=== PATIENT | male | born 1980 | race Caucasian/White ===

== ENCOUNTER 2020-11-26 19:55 | Emergency (ER) | payer MEDICAID, SELFPAY ==
[2020-11-26 20:06] VITALS: BP 168/142; PULSE 71; RESP 18; TEMP 37.5; O2SAT 94
--- NOTE | 2020-11-26 20:26 | ED.GENADUL_ITS ---
Discharge Plan Disposition Patient Disposition: HOME Condition: Stable Discharge Details Clinical Impression: Cephalgia, HTN (hypertension) Primary Care Provider: None,None ED Provider: Manolo Grady Home Meds and New Rx's Prescriptions: Continued buprenorphine-naloxone [Suboxone] 12-3 mg Film 1 film BUCCAL Q24H RF: 0 Discharge Instructions Instructions: General Headache (ED), Hypertension (ED) Additional Instructions: At this time your laboratory values do not reveal any obvious emergent process. You have responded nicely to the IV medications given she was here in the ER. As we discussed your blood pressure is elevated here in the ER but is nonemergent. I would like you to check your blood pressure twice a day for the next week and keep a log of your pressures. Please watch for new or worsening symptoms and return to the ER for any concerns. Lastly, I have placed you on the care management list, our care management team should be contacting you to help expedite outpatient primary care follow-up Medical Decision Making <MILES Cardenas - Last Filed: 11/26/20 23:41> 40-year-old gentleman, current daily Suboxone use, presents for a global headache that began this morning and was mild, progressed throughout the day, currently 7 out of 10 associate with photophobia, nausea, vomiting. Reports history of similar headaches. Denies recent illness or trauma. He appears diaphoretic and is actively dry heaving. He appears nontoxic, neurologically intact, no nuchal rigidity. Initial temp was 37.5, after he was medicated and no longer diaphoretic his temperature was 36.6. Initially had difficulty obtaining IV access, Dr. Ramon eventually obtained IV access. Patient given IV fluids and Zofran, reports no improvement with Zofran Given IV Reglan and Benadryl. Overall reports improvement of his symptoms but they have not resolved completely. Laboratory values have resulted, white blood cell count of 6.55 hemoglobin 13.3 hematocrit 39.6 platelet count 172. Potassium 3.9, creatinine 1.1 with a GFR greater than 60. LFTs slightly elevated. Abdomen soft, no ntender. Blood pressure is trending downward, no evidence of hypertensive emergency. We will place the patient on the care management list to help expedite outpatient primary care follow-up. Upon reevaluation patient reports his headache is now a 1 out of 10, barely there and stating. Reports that his nausea and vomiting has resolved completely. No longer has any photosensitivity. Blood pressure continues to trend downward. No evidence of hypertensive emergency. Denies any chest pain or shortness of breath. Renal function, creatinine 1.1, GFR greater than 60. Patient reports that he feels well enough to be discharged home. We did discuss his elevated blood pressure here in the ER and he will follow this through his primary care once he is contacted by the care management team. Upon discharge patient appears well, nontoxic, neurologically intact, no nuchal rigidity whatsoever Medical Records Medical records narrative: No previous records to review Lab Data Lab results reviewed: Yes I reviewed the patient's lab results. Labs: Laboratory Tests Range/Units 11/26/20 11/26/20 11/26/20 20:45 20:45 21:30 WBC (4.4-10.8) 10^3/uL RBC (4.36-5.78) 10^6/uL Hgb (13.5-17.5) g/dL Hct (40.0-50.0) % MCV (80-95) fL MCH (27.0-33.0) pg MCHC (32.0-36.0) % RDW (11.8-14.1) % Plt Count (130-400) 10^3/uL MPV (8.0-11.0) fL Immature Gran % Neutrophils % Lymphocytes % Monocytes % Eosinophils % Basophils % Nucleated RBC % % Absolute Neutrophils (1.2-6.7) 10^3/uL Absolute Lymphocytes (1.2-3.4) 10^3/uL Absolute Monocytes (0.1-0.8) 10^3/uL Absolute Eosinophils (0.0-0.7) 10^3/uL Absolute Basophils (0.0-0.2) 10^3/uL Sodium (136-145) mmol/L 140 Potassium (3.5-5.1) mmol/L 3.9 Chloride (98-107) mmol/L 99 Carbon Dioxide (21.0-32.0) mmol/L 26.8 Anion Gap (3-11) mmol/L 14.2 H BUN (7-18) mg/dL 9 Creatinine (0.70-1.30) mg/dL 1.1 Estimated GFR/1.73 m2 (mL/min/1.73m2) >= 60.00 Glucose (74-106) mg/dL 135 H Calcium (8.5-10.1) mg/dL 9.5 Magnesium (1.8-2.4) mg/dL 1.6 L Total Bilirubin (0.2-1.0) mg/dL 0.3 AST (15-37) U/L 40 H ALT (16-63) U/L 67 H Alkaline Phosphatase (46-116) U/L 82 Total Protein (6.4-8.2) g/dL 8.3 H Albumin (3.4-5.0) g/dL 4.4 Urine Color (Yellow) Yellow Urine Clarity (Clear) Clear Urine pH (5-8) 8.5 H Ur Specific [place] (1.005-1.025) 1.020 Urine Protein (Negative) mg/dL Negative Urine Ketones (Negative) mg/dL Negative Urine Blood (Negative) Negative Urine Nitrite (Negative) Negative Urine Bilirubin (Negative) Negative Urine Urobilinogen (Up TO 0.2) EU/dL 0.2 Ur Leukocyte Esterase (Negative) Negative Urine Glucose (Negative) mg/dL Negative Urine Opiates Screen (Negative) Negative Urine Methadone Screen (Negative) Negative Ur Barbiturates Screen (Negative) Negative Ur Tricyclics Screen (Negative) Negative Ur Amphetamines Screen (Negative) Negative U Benzodiazepines Scrn (Negative) Negative Urine Cocaine Screen (Negative) Negative Ur THC Screen (Negative) Positive A Range/Units 11/26/20 21:30 WBC (4.4-10.8) 10^3/uL 6.55 RBC (4.36-5.78) 10^6/uL 4.53 Hgb (13.5-17.5) g/dL 13.3 L Hct (40.0-50.0) % 39.6 L MCV (80-95) fL 87.4 MCH (27.0-33.0) pg 29.4 MCHC (32.0-36.0) % 33.6 RDW (11.8-14.1) % 13.6 Plt Count (130-400) 10^3/uL 172 MPV (8.0-11.0) fL 11.8 H Immature Gran % 0.5 Neutrophils % 64.5 Lymphocytes % 27.6 Monocytes % 6.3 Eosinophils % 0.8 Basophils % 0.3 Nucleated RBC % % 0 Absolute Neutrophils (1.2-6.7) 10^3/uL 4.23 Absolute Lymphocytes (1.2-3.4) 10^3/uL 1.81 Absolute Monocytes (0.1-0.8) 10^3/uL 0.41 Absolute Eosinophils (0.0-0.7) 10^3/uL 0.05 Absolute Basophils (0.0-0.2) 10^3/uL 0.02 Sodium (136-145) mmol/L Potassium (3.5-5.1) mmol/L Chloride (98-107) mmol/L Carbon Dioxide (21.0-32.0) mmol/L Anion Gap (3-11) mmol/L BUN (7-18) mg/dL Creatinine (0.70-1.30) mg/dL Estimated GFR/1.73 m2 (mL/min/1.73m2) Glucose (74-106) mg/dL Calcium (8.5-10.1) mg/dL Magnesium (1.8-2.4) mg/dL Total Bilirubin (0.2-1.0) mg/dL AST (15-37) U/L ALT (16-63) U/L Alkaline Phosphatase (46-116) U/L Total Protein (6.4-8.2) g/dL Albumin (3.4-5.0) g/dL Urine Color (Yellow) Urine Clarity (Clear) Urine pH (5-8) Ur Specific [place] (1.005-1.025) Urine Protein (Negative) mg/dL Urine Ketones (Negative) mg/dL Urine Blood (Negative) Urine Nitrite (Negative) Urine Bilirubin (Negative) Urine Urobilinogen (Up TO 0.2) EU/dL Ur Leukocyte Esterase (Negative) Urine Glucose (Negative) mg/dL Urine Opiates Screen (Negative) Urine Methadone Screen (Negative) Ur Barbiturates Screen (Negative) Ur Tricyclics Screen (Negative) Ur Amphetamines Screen (Negative) U Benzodiazepines Scrn (Negative) Urine Cocaine Screen (Negative) Ur THC Screen (Negative) HPI <MILES Cardenas - Last Filed: 11/26/20 23:41> General Mode of arrival: ambulatory . Date/Time Provider Initiated Documentation: 11/26/20 20:13 . Limitations to Documentation: no limitations . Information obtained by: patient . HPI Narrative: This is a 40-year-old male, takes Suboxone daily, history of IV opiate abuse but reports has not used anything in at least 5 or 6 years. He reports that he went to bed last night feeling well, awoke this morning with a dull global headache which progressed and became worse throughout the day associated with nausea, vomiting, photosensitivity. He reports a history of similar headaches in the past which has caused him to present to an ER. He reports initially they gave him Dilaudid for this but they have stopped doing this and now he just gets a few medica tions through the IV. He denies recent illness or trauma. He denies fever, visual changes, neck pain, chest pain, shortness of breath, abdominal pain, bowel or bladder retention or incontinence, numbness, tingling, weakness in his extremities. Reports that his headache currently is a 7 out of 10. He has not taken any medications for his symptoms. He reports smoking marijuana daily. Denies any other drug use or regular alcohol use. States that he has not missed any doses of his Suboxone Related Data Home Medications Medication Instructions Recorded Confirmed buprenorphine-naloxone [Suboxone] 1 film BUCCAL Q24H 11/26/20 11/26/20 Allergies Allergy/AdvReac Type Severity Reaction Status Date / Time haloperidol [From Haldol] Allergy Unknown Unverified 11/26/20 20:30 General Stated Complaint: Fever KAVIN: 3 Review of Systems <MILES Cardenas - Last Filed: 11/26/20 23:41> Constitutional Constitutional: Denies fatigue, Denies fever(s), Reports headache(s) and Denies weakness Eyes Eyes: Denies change in vision ENT Ears, Nose, Mouth, and Throat: Denies dizziness, Reports headache(s) and Denies neck pain Cardiovascular Cardiovascular: Denies chest pain and Denies dyspnea Respiratory Respiratory: Denies cough and Denies dyspnea Gastrointestinal Gastrointestinal: Denies abdominal pain, Reports nausea and Reports vomiting Musculoskeletal Musculoskeletal: Denies back pain, Denies neck pain, Denies numbness and Denies tingling Integumentary/Breasts Skin/Breast: Denies rash Neurologic Neurologic: Denies dizziness, Reports headache(s), Denies numbness, Denies tingling and Denies weakness Endocrine Endocrine: Denies fatigue PFSH <MILSE Cardenas - Last Filed: 11/26/20 23:41> Social History Smoking/Tobacco Use Status: Current every day Smoking risk assessment performed?: Yes Drug use: Daily Substance use type: marijuana Do you feel safe at home: Yes Do you feel safe in your relationship?: Yes Exam <MILES Cardenas - Last Filed: 11/26/20 23:41> Const General: cooperative, healthy appearing and other (Dry heaving, diaphoretic) Orientation: alert, awake and oriented x3 HENMT Head: normal to inspection, normocephalic and atraumatic Face and sinus: normal facial exam Mouth: moist mucous membranes Eyes General: appearance normal, both eyes and all related structures Alignment and Position: alignment normal Periorbital: periorbital findings normal Eyelids: eyelids normal Conjunctivae: conjunctivae normal Sclera: sclerae normal Cornea: corneas normal Pupils: PERRL EOM: EOM intact bilaterally Direct ophthalmoscopy: normal light reflex Neck Neck: normal visual inspection, full ROM, no lymphadenopathy, no meningeal signs, trachea midline, supple and nontender Resp Effort & Inspection: normal respiratory effort and able to speak in complete sentences Auscultation: clear to auscultation bilaterally Cardio Rate: regular rate Rhythm: regular rhythm GI Palpation: soft and nontender Back/Spine/Pelvis Back: No back tenderness Skin General skin exam: no rashes or lesions noted Neuro General: patient alert, patient awake, patient oriented x3, moves all extremities and no focal motor deficits Cranial Nerves: CN's II-XI intact bilaterally Cognition: normal cognition Speech: speech normal Gait: normal gait Motor: muscle tone normal throughout Sensory Exam: no sensory deficits noted Extrem General: full ROM and capillary refill normal Psych Appearance: grossly normal Mental Status: mental status grossly normal Course <MILES Cardenas - Last Filed: 11/26/20 23:41> Vital Signs Vital signs: Vital Signs Temperature 37.5 C 11/26/20 20:06 Pulse 71 11/26/20 20:06 Respiratory Rate 18 11/26/20 20:06 Blood Pressure 168/142 H 11/26/20 20:06 Pulse Oximetry 94 11/26/20 20:06 Temperature 37.5 C 11/26/20 20:06 Pulse 71 11/26/20 20:06 Respiratory Rate 18 11/26/20 20:06 Blood Pressure 168/142 H 11/26/20 20:06 Pulse Oximetry 94 11/26/20 20:06 Pain Level 10 11/26/20 20:06 <Abdoulaye Ramon MD - Last Filed: 11/26/20 23:05> EJ/Peripheral Line Arm R: Time Out Performed: Yes Skin Cleansed in Sterile Fashion: Yes Size (gauge): 18 IV Secured and Dressing Applied: Yes Patient Tolerated Procedure: well and no complications Additional Comments: performed under US guidance
[2020-11-26 21:12] LABS: Bilirubin Negative (Negative); Blood Negative (Negative); Clarity Clear (Clear); Glucose Negative (Negative); Ketones Negative (Negative); Leukocyte Esterase Negative (Negative); Nitrite Negative (Negative); Urobilinogen 0.2 EU/dL (Up TO 0.2); pH 8.5 (5-8)
[2020-11-26] MEDS: Ondansetron 4 MG/2 ML VIAL IVP (21:43)
[2020-11-26] MEDS: Normal Saline 1,000 ML 1000 ML IV (21:43)
[2020-11-26 21:49] LABS: Abs Immature Grans 0.03 10^3/uL (0.0-0.06); Absolute Basophil Count 0.02 10^3/uL (0.0-0.2); Absolute Eosinophil Count 0.05 10^3/uL (0.0-0.7); Absolute Lymphocyte Count 1.81 10^3/uL (1.2-3.4); Absolute Monocyte Count 0.41 10^3/uL (0.1-0.8); Absolute Neutrophil Count 4.23 10^3/uL (1.2-6.7); Basophils % 0.3; Eosinophils % 0.8; HCT 39.6 % (40.0-50.0); HGB 13.3 g/dL (13.5-17.5); Immature Grans % 0.5; Lymphocytes % 27.6; MCH 29.4 pg (27.0-33.0); MCHC 33.6 % (32.0-36.0); MCV 87.4 fL (80-95); MPV 11.8 fL (8.0-11.0); Monocytes % 6.3; Neutrophils % 64.5; Nucleated RBC 0 %; Platelet Count 172 10^3/uL (130-400); RBC 4.53 10^6/uL (4.36-5.78); RDW 13.6 % (11.8-14.1); RDW-SD 43.6 fL; WBC 6.55 10^3/uL (4.4-10.8)
[2020-11-26] MEDS: Metoclopramide 10 MG/2 ML VIAL IVP (21:53)
[2020-11-26] MEDS: diphenhydrAMINE 50 MG/ML VIAL IVP (21:53)
[2020-11-26 22:07] LABS: ALT 67 U/L (16-63); AST 40 U/L (15-37); Albumin 4.4 g/dL (3.4-5.0); Alkaline Phosphatase 82 U/L (46-116); Anion Gap 14.2 mmol/L (3-11); BUN 9 mg/dL (7-18); Bilirubin, Total 0.3 mg/dL (0.2-1.0); CO2 26.8 mmol/L (21.0-32.0); CREATININE 1.1 mg/dL (0.70-1.30); Calcium 9.5 mg/dL (8.5-10.1); Chloride 99 mmol/L (98-107); Glucose 135 mg/dL (74-106); Magnesium 1.6 mg/dL (1.8-2.4); Potassium 3.9 mmol/L (3.5-5.1); Sodium 140 mmol/L (136-145); Total Protein 8.3 g/dL (6.4-8.2)
[2020-11-26 22:11] VITALS: BP 180/107; PULSE 78; RESP 16; O2SAT 95
[2020-11-26 22:41] LABS: *AMPHETAMINES SCREEN URINE Negative (Negative); *BARBITURATES SCREEN URINE Negative (Negative); *BENZODIAZEPINES SCREEN URINE Negative (Negative); Cannabinoids THC Positive (Negative); Cocaine Screen,Urine Negative (Negative); METHADONE URINE SCREEN Negative (Negative); OPIATES URINE SCREEN Negative (Negative)
[2020-11-26 22:43] LABS: Tricyclic Antidepressants Negative (Negative)
[2020-11-26] MEDS: Ketorolac 30 MG/ML VIAL IVP (22:45)
[2020-11-26 22:55] VITALS: BP 164/99; PULSE 95; RESP 16; TEMP 36.6; O2SAT 98
--- NOTE | 2020-11-26 23:40 | NUR.NOTE ---
Referral to Care Management to establish pcp sooner rather than later for hypertension.:
[2020-11-26 23:46] VITALS: BP 169/104; PULSE 90; RESP 16; O2SAT 99
--- NOTE | 2020-11-27 14:40 | PDOC.ERCMPRO ---
- If Service Date Differs Date of service: 11/27/20 Time of Service: 14:40 Care Management Progress Note Hayden is seen in the ED for cephalgia and hypertension. At the request of ED provider, INDRA coordinates a referral to ARAVIND Anderson, [employer], of [facility], on-call provider, to assist Hayden in obtaining a follow up appointment and in establishing care with a PCP. He has [place] Medicaid for health insurance.
== END 2020-11-27 00:07 | disposition home or self-care (01) ==
PROVIDERS: Emergency Provider Physician Assistant
DX: R19.8 Other specified symptoms and signs involving the digestive system and abdomen (principal); R51.9 Headache, unspecified; R03.0 Elevated blood-pressure reading, without diagnosis of hypertension
CPT/HCPCS: 36415; 80053; 80307; 96361; 96365; 96375; 99284; 81003; 83735; 85025; J1200; J1885; J2405; J2765

== ENCOUNTER 2020-12-30 11:00 | Emergency (ER) | payer MEDICAID, SELFPAY ==
[2020-12-30 11:10] VITALS: BP 131/81; PULSE 79; RESP 16; TEMP 36.6; O2SAT 98
--- NOTE | 2020-12-30 11:34 | ED.GENADUL_ITS ---
Discharge Plan Disposition Patient Disposition: HOME Condition: Stable Discharge Details Clinical Impression: Lymphadenitis, acute Primary Care Provider: None,None ED Provider: Griselda Ace Home Meds and New Rx's Prescriptions: No Action buprenorphine-naloxone [Suboxone] 12-3 mg Film 1 film BUCCAL Q24H RF: 0 Discharge Instructions Instructions: Lymphadenopathy (ED) Additional Instructions: At this time I do believe that this is a swollen lymph node related to the recent Covid vaccination. It should go away in the next week or so. Please be seen sooner either here, urgent care, primary care provider if any increased signs of infection including redness, drainage, worsening pain or any other concerns Please take Tylenol or Ibuprofen with food every 4-6 hours as needed for pain and swelling. Follow up with primary care provider in 3-5 days. Return to ED sooner if any worsening or concerns. Increase oral fluids. Discharge Data Discharge Date/Time-TO BE ENTERED AT DEPARTURE: 12/30/20 11:47 Medical Decision Making Offered ultrasound which patient declined at this time. Discussed follow-up with primary care verbalized understanding. Discussed red flags and strict return instructions, understanding. Instructed to apply warm compresses and/or take Tylenol, Ibuprofen. HPI General Mode of arrival: ambulatory . Date/Time Provider Initiated Documentation: 12/30/20 11:31 . Limitations to Documentation: no limitations . Information obtained by: patient . HPI Narrative: 40-year-old male presents to the ER chief complaint of the left axillary lump which he noticed this morning. He is 4 days post Pfizer Covid vaccine to his left deltoid. He denies any other associated symptoms including rash, fever chills, no groin pain no other lumps noted. It is mildly tender with palpation. No surrounding erythema induration or signs of infection. He has a past medical history of hypertension. He does take Suboxone daily. Related Data Home Medications Medication Instructions Recorded Confirmed buprenorphine-naloxone [Suboxone] 1 film BUCCAL Q24H 11/26/20 12/30/20 Allergies Allergy/AdvReac Type Severity Reaction Status Date / Time haloperidol [From Haldol] Allergy Unknown Unverified 12/30/20 11:14 General Stated Complaint: RashLesion KAVIN: 4 Review of Systems All systems reviewed & are unremarkable except as noted in HPI and below Constitutional Constitutional: Reports as per HPI, Denies chills, Denies excessive sweating, Denies fatigue, Denies fever(s), Denies night sweats and Denies weakness ENT Ears, Nose, Mouth, and Throat: Denies neck pain Cardiovascular Cardiovascular: Denies chest pain, Denies leg ulcers, Denies leg edema and Denies dyspnea Respiratory Respiratory: Denies dyspnea Gastrointestinal Gastrointestinal: Denies diarrhea, Denies nausea and Denies vomiting Musculoskeletal Musculoskeletal: Reports as per HPI, Denies back pain, Reports myalgias (Achey lump left axillary region), Denies atrophy, Denies deformity, Denies arthralgias, Denies joint swelling, Denies limited range of motion, Denies muscle cramps, Denies neck pain, Denies radiating pain into limb and Denies stiffness Neurologic Neurologic: Denies weakness Endocrine Endocrine: Denies excessive sweating and Denies fatigue Hematologic/Lymphatic Hematologic/Lymphatic: Reports as per HPI and Reports lymphadenopathy (left axillae after vaccination) [facility] Social History Smoking/Tobacco Use Status: Current every day Tobacco Type: cigarettes Smoking risk assessment performed?: Yes Alcohol Intake: never Drug use: Daily Substance use type: marijuana Do you feel safe at home: Yes Do you feel safe in your relationship?: Yes Exam Const General: cooperative, healthy appearing, comfortable, well developed and well groomed Nutritional Appearance: average body habitus Orientation: alert, awake and oriented x3 Neck Neck: full ROM, no lymphadenopathy, trachea midline, supple, no anterior neck swelling and no lymphadenopathy noted Thyroid: thyroid normal Lymphatic: lymphadenopathy left axillary Skin General skin exam: no rashes or lesions noted, elasticity normal, turgor normal, no erythema and no fluctuance Extrem Right upper extremity: normal to inspection and full ROM Left upper extremity: full ROM, normal capillary refill, no joint enlargement and shoulder/upper arm (left axillary lymphadenopathy) Details: tenderness and swelling; no edema Course Vital Signs Vital signs: Vital Signs Temperature 36.6 C 12/30/20 11:10 Pulse 79 12/30/20 11:10 Respiratory Rate 16 12/30/20 11:10 Blood Pressure 131/81 12/30/20 11:10 Pulse Oximetry 98 12/30/20 11:10 Temperature 36.6 C 12/30/20 11:10 Temperature Source Skin 12/30/20 11:10 Pulse 79 12/30/20 11:10 Respiratory Rate 16 12/30/20 11:10 Respiratory Effort Non-Labored 12/30/20 11:10 Blood Pressure 131/81 12/30/20 11:10 Blood Pressure Position Sitting 12/30/20 11:10 Pulse Oximetry 98 12/30/20 11:10 Oxygen Delivery Method Room Air 12/30/20 11:10 Oxygen Flow Rate 0 12/30/20 11:10 Pain Level 1 12/30/20 11:10
--- NOTE | 2020-12-30 11:58 | NUR.NOTE ---
N[facility]ing Note[facility] with [facility] for routine follow up. Savanna Del Valle
== END 2020-12-30 11:47 | disposition home or self-care (01) ==
PROVIDERS: Emergency Provider Registered Nurse Emergency
DX: L04.2 Acute lymphadenitis of upper limb (principal)
CPT/HCPCS: 99282